=== PATIENT | female | born 1995 | race Caucasian/White ===

== ENCOUNTER 2023-11-16 20:14 | Observation (INO) | payer OTHER, SELFPAY ==
[2023-11-16] VITALS (7 sets, daily range): BP systolic 132–186; BP diastolic 55–124; BMI 22.4; BMI 22.3
[2023-11-16 17:25] LABS: % Basophils 0.3 % (0-2); % Eosinophils 1.7 % (0-6); % Immature Granulocytes 0.3 % (0-0.5); % Lymphocytes 18.6 % (20.5-51.1); % Monocytes 8.8 % (1.7-9.3); % Neutrophils 70.3 % (42.2-75.2); Absolute Eosinophils 0.2 10^3/uL (0-0.7); Absolute Lymphocytes 2.3 10^3/uL (1.2-3.4); Absolute Monocytes 1.1 10^3/uL (0.1-0.6); Absolute Neutrophils 8.8 10^3/uL (1.4-6.5); Hematocrit 37.6 % (37.0-47.0); Hemoglobin 13.2 g/dL (12.0-16.0); Mean Corp Hgb Conc. 35.1 g/dL (33.0-37.0); Mean Corpuscular Hgb 28.4 pg (27.0-31.0); Mean Corpuscular Volume 80.9 fL (81.0-99.0); Mean Platelet Volume 9.1 fL (7.4-10.4); Nucleated Red Blood Cells % 0 %; Platelet Count 283 10^3/uL (130-400); Red Blood Cell Count 4.65 10^6/uL (4.20-5.40); Red Cell Dist. Width 12.9 % (11.5-14.5); White Blood Cell Count 12.6 10^3/uL (4.8-10.8)
[2023-11-16 17:38] LABS: Lactic Acid 1.7 mmol/L (0.7-2.0)
[2023-11-16 17:39] LABS: ALT (SGPT) 37 U/L (0-35); AST (SGOT) 28 U/L (14-36); Albumin 4.3 g/dl (3.5-5.0); Alkaline Phosphatase 95 U/L (38-126); Blood Urea Nitrogen 27 mg/dl (7-17); Calcium 9.5 mg/dl (8.4-10.2); Carbon Dioxide 22 mmol/L (22-30); Chloride 106 mmol/L (98-107); Glucose 85 mg/dl (70-99); Potassium 4.4 mmol/L (3.5-5.1); Sodium 137 mmol/L (135-145); Total Bilirubin 0.4 mg/dl (0.2-1.3); Total Protein 6.9 g/dl (6.3-8.2); eGFR 52.88
[2023-11-16 17:54] LABS: HCG, Serum Qualitative Screen Negative
[2023-11-16] MEDS: NEURONTIN 900 MG PO ×2 (18:02→22:11)
--- NOTE | 2023-11-16 19:08 | W.PN.UPDATE ---
Update Note
Progress Note Update
ct head reviewed
diffuse atrophy and ventriculomegaly (question communicating hydrocephalus)
there is no ICP issue on CT and patient is reported to be at baseline minus reported leaning
ok to admit at
check MRI brain
full consult to follow tomorrow
--- NOTE | 2023-11-16 19:47 | HPS.HSE ---
Family Physician
-
Family Physician: Bao Taylor
Chief Complaint
-
leftward leaning
History of Present Illness
28-year-old female past medical history of migraines, MELAS syndrome, seizures, GERD, presenting with new onset of leaning to the left and feeling off balance for the past few weeks. She states that while she is sitting she will sometimes lean to
the left. She feels off balance when she stands so she has not been walking recently. She denies any new headache, blurry vision, vertigo, difficulty speaking or swallowing, nausea or vomiting, focal weakness, numbness or tingling. She gets
migraine possibly every month triggered by certain weather conditions, menstruation.
She states that she had a stroke when she was 11 years old. Her last seizure was several years ago.
She denies smoking, alcohol or marijuana.
She was sent in by Dr. Frederick her neurologist.
Medical History
Past Medical History
Past Medical History: Reports Other (migraines, MELAS syndrome, seizures, GERD)
Past Surgical History: Reports None
Social History
Tobacco: Non-smoker
Alcohol: None
Drug: None
Family History
Family History: Not pertinent
Allergies / Home Medications
Allergies reflects when Allergies were last updated in [facility].
Home Medications with original date entered in [facility]
Allergy/Medication List:
Allergies
Allergy/AdvReac Type Severity Reaction Status Date / Time
phenytoin [From Dilantin] Allergy Severe severe Verified 11/16/23 14:39
agitation
Penicillins Allergy Mild Hives Verified 11/16/23 14:39
Home Medications
dmthpnstgp-zyheqxbbhblvr-zslsjxei 50 mg-300 mg-40 mg capsule 1 cap PO Q6HPRN PRN mirgraines 11/16/23
fluoxetine 20 mg capsule (Prozac) 20 mg PO DAILY 11/16/23
gabapentin 300 mg capsule 900 mg PO TID 11/16/23
levetiracetam 750 mg tablet (Keppra) 750 mg PO BID 11/16/23
omeprazole 40 mg capsule,delayed release 40 mg PO HS 11/16/23
zolmitriptan 5 mg nasal spray 1 spray intranasal Q2HPRN PRN mirgraines 11/16/23
Review of Systems
-
History Source: Patient
A 12 point ROS was completed and negative except as noted: Yes
Constitutional: Reports No Symptoms
EENT: Reports No Symptoms
Respiratory: Reports No Symptoms
Cardiac: Reports No Symptoms
Abdomen/GI: Reports No Symptoms
: Reports No Symptoms
Musculoskeletal: Reports No Symptoms
Skin: Reports No Symptoms
Neurological: Reports See HPI
Endocrine: Reports No Symptoms
Hematologic/Lymphatic: Reports No Symptoms
Psych: Reports No Symptoms
Physical Exam
Vital Signs
Vital Signs
Temp Pulse Resp BP Pulse Ox
98.1 F 92 19 148/110 98
11/16/23 14:39 11/16/23 19:00 11/16/23 19:00 11/16/23 19:00 11/16/23 19:00
Physical Exam
General: Well Developed, Well Nourished and No Apparent Distress
HEENT: NormoCephalic, Moist mucous membranes and Atraumatic
Respiratory: Clear
Cardiac: S1/S2 and Regular Rhythm; No Murmur or Rub
GI: Soft, Non Tender, Non Distended and Normal Bowel Sounds; No Organomegaly
Rectal: Deferred by Provider
Musculoskeletal: No Clubbing, No Cyanosis and No Edema
Skin: No Rash
Neuro: Nonfocal/grossly intact, Tremors and Other (ataxia upper extremities )
Laboratory Results
-
11/16/23 17:16
11/16/23 17:16
Laboratory Results
Lactic Acid 1.7 mmol/L (0.7-2.0) 11/16/23 17:16
Total Bilirubin 0.4 mg/dl (0.2-1.3) 11/16/23 17:16
AST 28 U/L (14-36) 11/16/23 17:16
ALT 37 U/L (0-35) H 11/16/23 17:16
Alkaline Phosphatase 95 U/L (38-126) 11/16/23 17:16
Data Reviewed
-
Lab Data: Labs Reviewed by me
Old Records: Reviewed
Impression/Plan
-
IMPRESSION:
PLAN:
# Leftward leaning, disequilibrium possibly secondary to structural brain abnormality versus CVA vs manifestation of MELAS syndrome
-Has ataxia of upper extremities examination, but patient states this is not new
-CT shows diffuse atrophy, ventriculomegaly
-Check MRI brain with contrast
-Neurology, neurosurgery following
# Acute kidney injury
-IV fluids
MELAS syndrome
Seizure history
-Continue Keppra
History of migraines
-Continue gabapentin
GERD
-Continue omeprazole
Anxiety/depression
-Continue fluoxetine
Full code
DVT prophylaxis�SCDs
Regular diet
[2023-11-16] MEDS: NSS 1000 IV (21:19)
[2023-11-16] MEDS: PROTONIX 40 MG PO (22:10)
[2023-11-16] MEDS: KEPPRA 250 MG PO (22:10)
[2023-11-16] MEDS: KEPPRA 500 MG PO (22:10)
[2023-11-16] MEDS: TYLENOL 650 MG PO (22:36)
--- NOTE | 2023-11-16 23:58 | CON.NEURO4 ---
Consultation - Neurology 4
-
CONSULTING PHYSICIAN: Lyndon Barajas MD(Neurology)
REFERRING PHYSICIAN: Hospitalist
DICTATED BY: Lyndon Barajas MD
DATE/TIME OF REQUEST: 11/16/2023
DATE/TIME OF CONSULTATION: 11/16/2023 1900
Reason for Consultation: Ataxia
History of Present Illness:
This is a 28 year old right handed female who has presented to the hospital with chief complaint of ataxia. 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 She was seen at
[facility]
She had two episodes of status epilepticus and seizures were controlled with Keppra. Currently seizure free on Keppra 750 BID since 2006. She also gives ah/o headaches controlled on Gabapentin.
She walked with a walker.
Since Beginning of October 2023 she had difficulty maintaining her balance, walking with her walker
She was seen by her primary care and Gabapentin dose was decreased from 3600 mg to 2700mg (divided dosing). She was seen by her Neurologist who referred to [facility].
Past Medical History: MELAS
Surgical History:
Family History:
Social History: Disabled lives at home with her mother
Allergies: PCN, Dilantin
Home Medications: Addendum
Review of Symptoms:
Patient denies any fever, headache, chest pain, shortness of breath, GI or symptoms.
�Per the HPI.�All systems are reviewed negative except above.
�- Remove any of these problems that patient may have complained about in the HPI.
�- If patient is unresponsive, intubated or demented, say 'Per the HPI. I am unable to obtain a complete review of systems�because of patient's inability to provide history.'
Vital Signs:
The patient has a
Physical Exam:
The patient is afebrile, heart sounds S1 and S2 are (regular / irregular), and chest is clear to auscultation bilaterally.
Neurologic Examination:
The patient is awake, alert and oriented x person and place. She is able to follow commands and answer questions appropriately. Speech is fluent but limited with dysarthria. On cranial nerve assessment, pupils are 3 mm bilateral, round and reactive
to light and accommodation. Visual samuel are full. Extraocular movements are intact. Facial sensations are intact and bilaterally symmetrical, there is facial asymmetry. Hearing is intact bilaterally to normal conversation volume. Tongue palate
and uvula are midline. Sternocleidomastoid strengths are full bilaterally. Motor strengths are 4/5 bilateral upper and lower extremities.
There is no drift or involuntary movement noted. Deep tendon reflexes are + bilateral upper and lower extremities and Babinski is present bilaterally. Sensations of pain, touch, temperature and vibration are intact and bilaterally symmetrical..
Coordination is dysmetric on finger to nose bilaterally. Rombergs positive. Gait is assisted
Lab Results: Addendum
Neuro Imaging: Significant progression of parenchymal atrophy compared to the head CT from 07/07/2006. Small region of suspected age-indeterminate ischemia in the paramedian right occipital lobe. Ventriculomegaly suggestive of communicating
hydrocephalus
Impression:
Ms. STEVEN GOODMAN is a 28 year old F who has presented to the hospital with (symptoms/chief complaint) of gait ataxia
Differentials for the patient's presentation include:
1. Hydrocephalus
2. Gabapentin toxicity
Recommendations:
1. Neurosurgical eval
2. Lumbar puncture with large volume CSF removal to assess recovery of functional gait
Discussed patient care with: Hospitalist and Mother
Vital Signs and Labs
-
Vital Signs and Labs:
Vital Signs
Temp Pulse Resp BP Pulse Ox
36.8 C 90 20 132/55 97
11/16/23 23:56 11/16/23 23:56 11/16/23 23:56 11/16/23 23:56 11/16/23 23:56
Lab Results
11/16/23 17:16
11/16/23 17:16
Sodium 137 mmol/L (135-145) 11/16/23 17:16
Potassium 4.4 mmol/L (3.5-5.1) 11/16/23 17:16
BUN 27 mg/dl (7-17) H 11/16/23 17:16
Glucose 85 mg/dl (70-99) 11/16/23 17:16
Calcium 9.5 mg/dl (8.4-10.2) 11/16/23 17:16
Medications
-
Active Medications
Generic Name Dose Route Start Last Admin
Trade Name Freq PRN Reason Stop Dose Admin
Acetaminophen 650 mg 11/16/23 22:10 11/16/23 22:36
Acetaminophen 325 Mg Tablet PO 12/14/23 22:09 650 mg
Q6HPRN PRN Administration
mild pain/ fever>100.5F
Acetaminophen/Butalbital/Caffeine 1 tab 11/16/23 21:44
Butalbit/Acetaminophen/Caffeine PO 12/14/23 21:43
Q6HPRN PRN
mirgraines
Fluoxetine HCl 20 mg 11/17/23 08:00
Fluoxetine 20 Mg Capsule PO 12/15/23 07:59
DAILY HERMINIA
Gabapentin 900 mg 11/16/23 22:00 11/16/23 22:11
Gabapentin 300 Mg Capsule PO 12/14/23 21:59 900 mg
TID HERMINIA Administration
Sodium Chloride 1,000 mls @ 60 mls/hr 11/16/23 20:55 11/16/23 21:19
Nss IV 1,000 mls
.[id number] HERMINIA Administration
Levetiracetam 250 mg 11/16/23 21:00 11/16/23 22:10
Levetiracetam 250 Mg Regular Release Tablet PO 12/14/23 20:59 250 mg
BID HERMINIA Administration
Levetiracetam 500 mg 11/16/23 21:00 11/16/23 22:10
Levetiracetam 500 Mg Regular Release Tablet PO 12/14/23 20:59 500 mg
BID HERMINIA Administration
Pantoprazole Sodium 40 mg 11/16/23 22:00 11/16/23 22:10
Pantoprazole 40 Mg Delayed Release Tablet PO 12/14/23 21:59 40 mg
HS HERMINIA Administration
Home Medications
�Medication �Instructions �Recorded
mtljmmvawt-zjepqofhmrwsi-zdxdbzzd 1 cap PO Q6HPRN PRN mirgraines 11/16/23
50 mg-300 mg-40 mg capsule
fluoxetine 20 mg capsule (Prozac) 20 mg PO DAILY 11/16/23
gabapentin 300 mg capsule 900 mg PO TID 11/16/23
levetiracetam 750 mg tablet 750 mg PO BID 11/16/23
(Keppra)
omeprazole 40 mg capsule,delayed 40 mg PO HS 11/16/23
release
zolmitriptan 5 mg nasal spray 1 spray intranasal Q2HPRN PRN 11/16/23
mirgraines
[2023-11-17 03:42] VITALS: BP 140/96
[2023-11-17 07:10] VITALS: BP 159/112
[2023-11-17 07:24] LABS: % Basophils 0.3 % (0-2); % Eosinophils 2.3 % (0-6); % Immature Granulocytes 0.3 % (0-0.5); % Lymphocytes 21.6 % (20.5-51.1); % Monocytes 8.3 % (1.7-9.3); % Neutrophils 67.2 % (42.2-75.2); Absolute Eosinophils 0.3 10^3/uL (0-0.7); Absolute Lymphocytes 2.5 10^3/uL (1.2-3.4); Absolute Neutrophils 7.7 10^3/uL (1.4-6.5); Hematocrit 37.5 % (37.0-47.0); Hemoglobin 12.8 g/dL (12.0-16.0); Mean Corp Hgb Conc. 34.1 g/dL (33.0-37.0); Mean Corpuscular Hgb 28.1 pg (27.0-31.0); Mean Corpuscular Volume 82.4 fL (81.0-99.0); Mean Platelet Volume 9.3 fL (7.4-10.4); Nucleated Red Blood Cells % 0 %; Platelet Count 266 10^3/uL (130-400); Red Blood Cell Count 4.55 10^6/uL (4.20-5.40); Red Cell Dist. Width 12.9 % (11.5-14.5); White Blood Cell Count 11.5 10^3/uL (4.8-10.8)
[2023-11-17 07:54] LABS: ALT (SGPT) 34 U/L (0-35); AST (SGOT) 32 U/L (14-36); Albumin 3.9 g/dl (3.5-5.0); Alkaline Phosphatase 82 U/L (38-126); Blood Urea Nitrogen 31 mg/dl (7-17); Carbon Dioxide 21 mmol/L (22-30); Chloride 109 mmol/L (98-107); Estimated Creatinine Clearance 46 ml/min; Glucose 94 mg/dl (70-99); Potassium 4.6 mmol/L (3.5-5.1); Sodium 138 mmol/L (135-145); Total Bilirubin 0.5 mg/dl (0.2-1.3); Total Protein 6.3 g/dl (6.3-8.2); eGFR 52.88
[2023-11-17] MEDS: KEPPRA 500 MG PO (08:22)
[2023-11-17] MEDS: PROZAC 20 MG PO (08:22)
[2023-11-17] MEDS: NEURONTIN 900 MG PO ×2 (08:22→14:57)
[2023-11-17] MEDS: KEPPRA 250 MG PO (08:22)
--- NOTE | 2023-11-17 10:37 | EEG.RPT ---
Electroencephalogram Report
Recording
Date of EE11/17/23
Length of EEG recordin minutes
Done with Video Recording: No
Patient Status: Inpatient
Recording Conditions: Awake and Drowsy
Hyperventilation Performed: No
Photic Stimulation Performed: Yes
Report
LESS THAN 1 HOUR EEG INTERPRETATION:
Unremarkable EEG for age.
CLINICAL CORRELATION:
A normal EEG does not exclude epilepsy. If further suspicion for epilepsy exists repeated study or longer term study can be considered.
Clinical correlation is advised.
METHODS:
A 21 channel digitized electroencephalogram (EEG) was performed using the 10/20 international system of electrode placement and one-lead of ECG recorded. Study lasted 26 minutes.
ELECTROENCEPHALOGRAPHER IMPRESSION(S):
Quality of study
Good
Background
Background consists of predominantly alpha and theta maximum frequencies of normal medium amplitude
With eyes closed a posterior dominant alpha rhythm of 8 hz is seen which attenuates with eye opening
No background asymmetry seen
Sleep
Drowsiness present
Photic Stimulation
No activation
Hyperventilation
Not performed
ECG
Normal sinus rhythm
Abnormalities
No significant abnormalities seen, no seizures or interictal epileptiform discharges seen
[2023-11-17 11:05] VITALS: BP 123/88
--- NOTE | 2023-11-17 11:28 | CON.NS ---
Chief Complaint
-
Question hydrocephalus
History of Present Illness
This is a 28-year-old female with a history of MELAS syndrome. At baseline she uses walker. Mom noticed for the past 3 weeks on leaning when she walks or stands. Or while sitting on a chair. Her mother does note waxing waning of her symptoms
over time. CAT scan of the head was obtained which showed diffuse ventriculomegaly and worsening atrophy. There is a question of if there is communicating hydrocephalus. Neurosurgery has been consulted as per above.
Review of Systems
-
Patient was sleeping during interview all history is obtained by her mother
Medication and Allergies
Home Medications
Home Medications
�Medication �Instructions �Recorded
wmtvdbsevp-cmcalkitkuyww-ervoznza 1 cap PO Q6HPRN PRN mirgraines 11/16/23
50 mg-300 mg-40 mg capsule
fluoxetine 20 mg capsule (Prozac) 20 mg PO DAILY Depression 11/16/23
gabapentin 300 mg capsule 900 mg PO TID Neurological 11/16/23
Condition
levetiracetam 750 mg tablet 750 mg PO BID Seizures 11/16/23
(Keppra)
omeprazole 40 mg capsule,delayed 40 mg PO HS Gastrointestinal Issue 11/16/23
release
zolmitriptan 5 mg nasal spray 1 spray intranasal Q2HPRN PRN 11/16/23
mirgraines
Allergies
Allergies
Allergy/AdvReac Type Severity Reaction Status Date / Time
phenytoin [From Dilantin] Allergy Severe severe Verified 11/16/23 14:39
agitation
Penicillins Allergy Mild Hives Verified 11/16/23 14:39
Physical Exam
-
Exam:
Patient sleeping during exam no physical exam was taken
CT head shows diffuse ventriculomegaly, diffuse cerebral atrophy.
MRI does not show any obstructing lesion
Assessment / Plan
-
Cerebral atrophy, ventriculomegaly, question hydrocephalus
1. This is a complex medical picture. Is unclear whether her symptoms of leaning are due to her underlying mitochondrial disease, cerebral atrophy secondary to her mitochondrial disease, or the possibility of a communicating hydrocephalus
2. At this time it is reasonable to consider a high-volume lumbar puncture to see if there is any clinical improvement in her symptoms. If a high-volume LP is obtained and there is improvement then consideration can be made for
ventriculoperitoneal shunt
3. Given the duration of symptoms I do not believe it is emergent. And this can all be done as an outpatient
4. She can follow-up as an outpatient when she discharges
--- NOTE | 2023-11-17 11:35 | W.PN.HOSP.TC ---
Documented by User: Min Martinez MD, Resident 11/17/23 13:28
Today's Communication/Plan
-
Patient is medically stable at the present time and has been evaluated by neurosurgery. Upon evaluation from neurosurgery they were unsure whether her symptoms of bleeding were due to underlying mitochondrial disease, cerebral atrophy secondary to
mitochondrial disease, or possibility of a communicating hydrocephalus. There was consideration of conducting a high-volume lumbar puncture to see if any clinical improvement occurred and her symptoms and if improvement occurred there may be
consideration of ventriculoperitoneal shunt. They recommended that this procedure be done in the outpatient setting as it is not emergent by their evaluation.
Physical therapy consult along with case management has been asked to evaluate if the patient can benefit from assistance at home. After evaluation we we will move forward with discharge planning.
Assessment / Plan
Assessment / Plan
- Leftward leaning, disequilibrium possibly secondary to structural brain abnormality versus CVA vs manifestation of MELAS syndrome:
Has ataxia of upper extremities on examination�these are not new findings.
CT of the head shows diffuse ventriculomegaly with diffuse cerebral atrophy. Significant progression of atrophy when compared to head CT from 07/07/2006
MRI shows chronic senescent changes with diffuse parenchymal atrophy. Suspicion of superimposed communicating normal pressure hydrocephalus
EEG conducted was unremarkable.
Neurology consult was suspicious of normal pressure communicating hydrocephalus. They advised neurosurgery consult be conducted
Neurosurgery consult was unclear whether her symptoms of leaning with due to underlying mitochondrial disease, cerebral atrophy secondary to her mitochondrial disease, or the possibility of a communicating hydrocephalus. There was consideration of
possibly conducting a high-volume lumbar puncture to see if any clinical improvement in her symptoms occurred. If high-volume LP is obtained and improvement is seen then consideration could be made for ventriculoperitoneal shunt. Symptoms were not
emergent and they advised conducting this procedure in the outpatient setting after discharge.
- MELAS syndrome:
Seizure history�continue Keppra
- Anxiety/Depression:
Continue fluoxetine
Full code
DVT prophylaxis �sequential compression devices
Regular diet
Anticipated Discharge: Within 24 hours
Subjective/Interval History
-
Date of Service: November 17, 2023
Met with patient at the bedside. She is in a calm and pleasant mood and happy to engage in discussion. She is currently leaning to the left and struggles to move without losing balance. She offers no complaints outside of her difficulty finding
balance. She has had normal bowel movements and urination.
Objective Data
-
Labs:
Laboratory Results
11/17/23
06:54
WBC 11.5 H
Hgb 12.8
Hct 37.5
Plt Count 266
Sodium 138
Potassium 4.6
Chloride 109 H
Carbon Dioxide 21 L
BUN 31 H
Creatinine 1.4 H
Glucose 94
Calcium 9.0
Total Bilirubin 0.5
AST 32
ALT 34
Alkaline Phosphatase 82
Vital Signs:
Vital Signs
Temp Pulse Resp BP Pulse Ox
99.4 F 91 18 123/88 97
11/17/23 11:05 11/17/23 11:05 11/17/23 11:05 11/17/23 11:05 11/17/23 11:05
I&O
11/16/23 11/17/23 11/18/23
06:59 06:59 06:59
Intake Total 840 / 840
Output Total 200 / 200
Balance 640 / 640
Review of Systems
-
History Source: Patient
EENT: Reports No Symptoms Reported
Respiratory: Reports No Symptoms
Cardiac: Reports No Symptoms
Abdomen/GI: Reports No Symptoms
Breast: Reports No Symptoms
Genitourinary: Reports No Symptoms
Musculoskeletal: Reports No Symptoms
Skin: Reports No Symptoms
Neuro: Reports Ataxia, Tremors and Other (Balance difficulty - Leaning towards left side)
Endocrine: Reports No Symptoms
Hematologic / Lymphatic: Reports No Symptoms
Allergy / Immunology: Reports No Symptoms
Physical Exam
-
General: Well Developed, Well Nourished and Comfortable
HEENT: Normocephalic, Atraumatic and Moist Mucous Membranes
Respiratory: Clear to Auscultation
Cardiac: Regular Rhythm and S1/S2
Breast: Deferred by me
GI: Soft, Nontender, Nondistended and Normal Bowel Sounds
Rectal: Deferred by Provider
Genito-urinary: Deferred by me
Musculoskeletal: No Clubbing, No Cyanosis and No Edema
Skin: Warm and Dry
Neuro: Other (Difficulty with proprioception and leaning to the left)
Psych: Calm

Documented by User: Bruce Caba MD 11/17/23 14:40
Assessment / Plan
Assessment / Plan
Anticipated Discharge: Today
--- NOTE | 2023-11-17 11:57 | W.DS.TRANS ---
DC Summary - Access Consultant
-
Discharge Instructions:
Discharge Diagnosis/Procedures MELAS Syndrome
Diet No restrictions
Activity With assistance,With Walker
Driving Restrictions As prior to admission
Bathing Restrictions None
Instructions:
Stand-Alone Forms:
Changes to Home Medications: No
Discharge Medications:
DC Medications w/original date entered in [employer]
pagycmgzza-oktjtytfzbqub-ihmehhcw 50 mg-300 mg-40 mg capsule 1 cap PO Q6HPRN PRN mirgraines 11/16/23
fluoxetine 20 mg capsule (Prozac) 20 mg PO DAILY Depression 11/16/23
gabapentin 300 mg capsule 900 mg PO TID Neurological Condition 11/16/23
levetiracetam 750 mg tablet (Keppra) 750 mg PO BID Seizures 11/16/23
omeprazole 40 mg capsule,delayed release 40 mg PO HS Gastrointestinal Issue 11/16/23
zolmitriptan 5 mg nasal spray 1 spray intranasal Q2HPRN PRN mirgraines 11/16/23
Home Medication Changes
Pending Results: No
--- NOTE | 2023-11-17 11:58 | W.DCSUMMARY ---
Documented by User: Min Martinez MD, Resident 11/17/23 14:38
Discharge Summary
Discharge Data
Date of Admission: 11/16/23
Date of Discharge: 11/17/23
-
Pending Results: No
Hospital Course
Patient is a 28-year-old female with a past history of migraines, MELAS syndrome, seizures, GERD who presented to [place] emergency department with new onset leaning to the left side and feeling off balance for the past few weeks. She stated
that it started in the beginning of October and that while she is sitting she leans to the left. She felt off balance when she was standing so she had not been walking much up until her presentation to the emergency department. She denied any new
headache, blurry vision, vertigo, difficulty speaking or swallowing, nausea or vomiting, focal weakness, numbness or tingling. 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 Her last
seizure was in 2006 according to the patient's mother. The patient was admitted to [facility] for assessment of a neurological issues.
The patient underwent a CT and MRI with contrast during her admission. She was also followed by neurology and neurosurgery. CT of the head conducted on 11/15 showed significant progression of advanced parenchymal atrophy when compared to the head
CT from 07/07/2006. CT also showed a small region of suspected age-indeterminate ischemia in the paramedian right occipital lobe and radiologist to read the CT recommended a MRI to further investigate. MRI conducted on 11/16 showed chronic senescent
changes with diffuse parenchymal atrophy. Radiology also could not rule out component of superimposed communicating normal pressure hydrocephalus. EEG conducted on 11/16 was unremarkable. Neurology saw the patient and was under the impression that
the cause may be due to hydrocephalus and recommended further follow-up with neurosurgery. Neurosurgery came and assessed the patient and after investigating recent and prior imaging of the brain they were unclear whether her symptoms of leftward
leaning were due to her underlying mitochondrial disease, cerebral atrophy secondary to her mitochondrial disease, or the possibility of communicating hydrocephalus. Neurosurgery were considering possibility of high-volume lumbar puncture to see if
there was any clinical improvement of her symptoms and if that LP resulted in improvement then consideration could be made for ventriculoperitoneal shunt in the future. Neurosurgery did not believe that the duration of symptoms were emergent and
recommended that these procedures be done in the outpatient setting. They recommended that the patient follow-up with Dr. Reed in his group in the outpatient setting upon discharge. The patient and her family believe the patient is ready for
discharge as her condition has remained stable and will follow-up with neurosurgery in the outpatient setting. The patient has been struggling with ambulation and though she uses her walker, as of late it has been more difficult for her to safely
navigate her home. A PT/OT consult evaluated the patient and assessed that the patient would benefit from OT services at home. applications manager was notified and made arrangements for the family to get assistance in the outpatient setting.
This patient has reached maximal benefit from this hospital stay and is appropriate for discharge at the present time. The patient has been recommended to follow-up with neurosurgery in the outpatient setting and to utilize the services of
occupational therapy in the outpatient setting. Patient is appropriate for follow-up by her primary care provider within 1 week after discharge. She should continue her current medication regimen.
Discharge Plan
-
Patient Disposition: Home (Routine Discharge)
Discharge Diagnosis/Procedures: MELAS Syndrome
Diet: No restrictions
Activity: With assistance and With Walker
Driving Restrictions: As prior to admission
Bathing Restrictions: None
Referrals:
Beto Reed DO [Active] -
Bao Taylor MD [Family Provider] - in one week
Prescriptions:
Continued
omeprazole 40 mg Capsule,Delayed Release(Dr/Ec)
40 mg PO HS
gabapentin 300 mg Capsule
900 mg PO TID
levetiracetam [Keppra] 750 mg Tablet
750 mg PO BID
fluoxetine [Prozac] 20 mg Capsule
20 mg PO DAILY
zolmitriptan 5 mg [place],Non-Aerosol
1 spray INTRANASAL Q2HPRN PRN (Reason: mirgraines)
yigtdnywme-qbikhhxduxzuo-memp 50-300-40 mg capsule
1 cap PO Q6HPRN PRN (Reason: mirgraines)
Discharge Orders:
Discharge Patient (As Directed); Ordered 11/17/23
Ordered By: Min Martinez
Discharge Date and Time
Print Language: CROATIAN

Documented by User: Bruce Caba MD 11/17/23 14:42
Discharge Summary
Discharge Data
Date of Admission: 11/16/23
Date of Discharge: 11/17/23
Hospital Course
Patient is a 28-year-old female with a past history of migraines, MELAS syndrome, seizures, GERD who presented to [place] emergency department with new onset leaning to the left side and feeling off balance for the past few weeks. She stated
that it started in the beginning of October and that while she is sitting she leans to the left. She felt off balance when she was standing so she had not been walking much up until her presentation to the emergency department. She denied any new
headache, blurry vision, vertigo, difficulty speaking or swallowing, nausea or vomiting, focal weakness, numbness or tingling. 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 Her last
seizure was in 2006 according to the patient's mother. The patient was admitted to [facility] for assessment of a neurological issues.
The patient underwent a CT and MRI with contrast during her admission. She was also followed by neurology and neurosurgery. CT of the head conducted on 11/15 showed significant progression of advanced parenchymal atrophy when compared to the head
CT from 07/07/2006. CT also showed a small region of suspected age-indeterminate ischemia in the paramedian right occipital lobe and radiologist to read the CT recommended a MRI to further investigate. MRI conducted on 11/16 showed chronic senescent
changes with diffuse parenchymal atrophy. Radiology also could not rule out component of superimposed communicating normal pressure hydrocephalus. EEG conducted on 11/16 was unremarkable. Neurology saw the patient and was under the impression that
the cause may be due to hydrocephalus and recommended further follow-up with neurosurgery. Neurosurgery came and assessed the patient and after investigating recent and prior imaging of the brain they were unclear whether her symptoms of leftward
leaning were due to her underlying mitochondrial disease, cerebral atrophy secondary to her mitochondrial disease, or the possibility of communicating hydrocephalus. Neurosurgery were considering possibility of high-volume lumbar puncture to see if
there was any clinical improvement of her symptoms and if that LP resulted in improvement then consideration could be made for ventriculoperitoneal shunt in the future. Neurosurgery did not believe that the duration of symptoms were emergent and
recommended that these procedures be done in the outpatient setting. They recommended that the patient follow-up with Dr. Reed in his group in the outpatient setting upon discharge. The patient has been struggling with ambulation and though
she uses her walker, as of late it has been more difficult for her to safely navigate her home. A PT/OT consult evaluated the patient and assessed that the patient would benefit from OT services at home. applications manager was notified and made
arrangements for the family to get assistance in the outpatient setting.
This patient has reached maximal benefit from this hospital stay and is appropriate for discharge at the present time. The patient has been recommended to follow-up with neurosurgery in the outpatient setting and to utilize the services of
occupational therapy in the outpatient setting. Patient is appropriate for follow-up by her primary care provider within 1 week after discharge. She should continue her current medication regimen.
Discharge Plan
-
Patient Disposition: Home (Routine Discharge)
Discharge Diagnosis/Procedures: MELAS Syndrome
Diet: No restrictions
Activity: With assistance and With Walker
Driving Restrictions: As prior to admission
Bathing Restrictions: None
Referrals:
Beto Reed DO [Active] -
Bao Taylor MD [Family Provider] - in one week
Prescriptions:
Continued
omeprazole 40 mg Capsule,Delayed Release(Dr/Ec)
40 mg PO HS
gabapentin 300 mg Capsule
900 mg PO TID
levetiracetam [Keppra] 750 mg Tablet
750 mg PO BID
fluoxetine [Prozac] 20 mg Capsule
20 mg PO DAILY
zolmitriptan 5 mg [place],Non-Aerosol
1 spray INTRANASAL Q2HPRN PRN (Reason: mirgraines)
idfyowkjpo-aphhhgiyznrok-ekfn 50-300-40 mg capsule
1 cap PO Q6HPRN PRN (Reason: mirgraines)
Discharge Orders:
Discharge Patient (As Directed); Ordered 11/17/23
Ordered By: Min Martinez
Discharge Date and Time
Print Language: CROATIAN
--- NOTE | 2023-11-17 14:36 | W.PN.UPDATE ---
Update Note
Progress Note Update
I saw and evaluated the patient. I reviewed the resident�s note and agree with findings and plan as documented in the resident�s note.
Patient with a subacute onset of left leaning gait and imbalance and needing to use a walker. Patient has MELAS.
Imaging and testing so far shows cerebral atrophy ventriculomegaly and questionable communicating hydrocephalus. Appreciate neurology and neurosurgery input. The plan is to do a high-volume lumbar puncture to see if it helps her clinical symptoms
; can be pursued as an outpatient.
Discussed with mother at bedside who is feeling that with the current change in her ambulatory function they want to explore if she can get any help with therapies at home. Consult PT and director of social media marketing.
After patient seen by PT and director of social media marketing will be discharged home today.
DW NSG on floor today.
More than 30 minutes spent in discharge including
Final examination of the patient
Summarizing hospital stay
Instructions for continuing care to all relevant caregivers
Preparation of discharge records, prescriptions, and referral forms
Total time spent (in minutes): 35
[2023-11-17] MEDS: NSS 1000 IV (14:57)
[2023-11-17 15:05] VITALS: BP 149/92
[2023-11-17 16:13] VITALS: BP 147/106; PULSE 112; O2SAT 99
--- NOTE | 2023-11-17 16:27 | CM ---
Addendum entered by Alexandro Cerda 11/17/23 16:34:
Mother declined therapy recommendation for acute rehab.
Original Note:
Initial assessment completed with mother. Patient lives with mother in a 2 story home with patient's B/B on 2nd and 1/2 bath on w 2 steps to enter with B/L rails. Patient has a rollator, electric scooter, wheelchair, handicap shower and grab
bars. No in-home services. Patient is capable of dressing herself, oral hygiene, hair grooming, requires assistance in the shower. She goes to the gym 2x/week for exercise. No history of psychiatric hospitalizations. Pharmacy is [facility] in [place]
and PCP is Dr. Bao Taylor. Anticipate home with [facility], PT/OT services. Referral forwarded.
--- NOTE | 2023-11-17 16:35 | CM ---
Patient has been medically cleared for discharge to home with [facility], PT/OT services. Mother has declined therapy rec for acute rehab. Mother will transport home.
--- NOTE | 2023-11-21 11:09 | ED.CVA ---
History of Present Illness
General
Chief Complaint: CVA/TIA Symptoms
Source: patient
Time Seen by Provider: 11/16/23 16:31
Onset of Stroke Symptoms
Onset of symptoms known: No
Time pt last seen normal is known: No
History of Present Illness
History of Present Illness:
Please note the date of discharge should read 11/16/2023. Patient is a 28-year-old female that presents with mother who states the patient has been leaning to the left recently. 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
She is followed by neurology as well as specialty at [facility]. Patient has been in her normal cognitive baseline but has been leaning to the left while sitting and ambulating. This been going on for the past 3 to 4 days. No associated pain. No
fever. No other complaints at this time
Phy Exam
Physical Exam
Physical Exam:
General: Well-appearing female no acute respiratory distress
HEENT: Normocephalic atraumatic
Heart: Regular rate and rhythm no murmurs
Lungs: Clear no wheeze or rales
Abdomen is soft nontender nondistended
Neurologic exam: Alert oriented no obvious unilateral deficit. On exam
Course
Orders/Labs/Results
Orders:
Orders
11/16/23 14:[address] [CT Head W/o Iv Contrast] Urgent
Comment:
Reason For Exam: hx of CVA, leaning on left, gait dysfunction
11/16/23 Dinner
Regular
At Your Request: Limited Participation
11/16/23 16:52
Gabapentin [Neurontin] 900 mg PO NOW STA
11/16/23 17:16
Complete Blood Count/With Diff Urgent
Comprehensive Metabolic Panel Urgent
HCG, Serum Qualitative Screen Urgent
Comment: ADD ON
Lactic Acid Urgent
11/16/23 17:24
Add On- LAB Urgent
Comments:: in lab
Tests Added?: Serum HCG qualitative
11/16/23 19:42
Admit/Transfer Patient As Directed
Co-Sign Provider:
Level of Care: Observation services
Assign to:: Telemetry
Physician / Group: teri
Diagnosis: lefrward leaning
Reason for Telemetry: CVA/TIA
Date to Stop Telemetry: 11/19/23
Time to Stop Telemetry: 11:00
11/16/23 19:43
Code Status As Directed
Resuscitation Status: Full Code
11/16/23 20:55
0.9% Sodium Chloride 1000 ml [Nss] 1,000 ml IV 60 mls/hr
levetiracetam [Keppra] 750 mg PO BID
zolmitriptan 1 spray NASAL Q2HPRN PRN
11/16/23 20:55
NEUROLOGY CONSULT Routine
Consulting Provider: Lyndon Barajas
Was physician already notified: Yes
Activity As Directed
Activity Level: As Tolerated
Pneumatic Compression Sleeves As Directed
Type: Knee high
Vital Signs As Directed
Frequency: Per unit guidelines
DX Deep Vein Thrombosis Video Routine
11/16/23 21:44
Butalb/Acetaminophen/Caffeine [Fioricet] 1 tab PO Q6HPRN PRN
11/16/23 22:00
Gabapentin [Neurontin] 900 mg PO TID
Pantoprazole [Protonix] 40 mg PO HS
11/17/23 06:54
Complete Blood Count/With Diff IN AM
Comprehensive Metabolic Panel IN AM
11/17/23 08:00
Fluoxetine HCl [Prozac] 20 mg PO DAILY
11/19/23 11:00
DC Protocol for Telemetry ONCE
Abnormal Lab Results
11/16/23
17:16
WBC 12.6 H 10^3/uL
(4.8-10.8)
MCV 80.9 L fL
(81.0-99.0)
Absolute Neuts (auto) 8.8 H 10^3/uL
(1.4-6.5)
Absolute Monos (auto) 1.1 H 10^3/uL
(0.1-0.6)
Lymphocytes % 18.6 L %
(20.5-51.1)
BUN 27 H mg/dl
(7-17)
Creatinine 1.4 H mg/dL
(0.6-1.0)
ALT 37 H U/L
(0-35)
11/16/23 17:16
11/16/23 17:16
Vital Signs
Initial and Last Documented VS:
Initial Vital Signs
Temp Pulse Resp BP Pulse Ox
98.1 F 93 18 145/83 98
11/16/23 14:39 11/16/23 14:39 11/16/23 14:39 11/16/23 14:39 11/16/23 14:39
Last Documented Vital Signs
Temp Pulse Resp BP Pulse Ox
98.2 F 94 18 149/92 99
11/17/23 15:05 11/17/23 15:05 11/17/23 15:05 11/17/23 15:05 11/17/23 15:05
MDM/Problems Addressed
Differential Diagnosis Includes:
Leaning to the left. She has mitochondrial disorder that makes her prone to neurologic events. Mother current for about a stroke. She spoke with her neurology, Dr. Chou who sent her in for further evaluation CT of the head was performed which
was negative. I discussed findings with our neurology team, [facility]. I spoke with the metabolic team at [facility], the ED director as well as the general medicine and stroke team. They agree that the
patient has aged out of the care of [facility]. They recommended adult stroke workup. Let our neurology team known patient was admitted to hospital for new onset left-sided needing.
*Critical Care Note
Total Time (30-74mins, 75-104mins- exclusive of procedures): Not Applicable
ED Attending Note
-
Portions of this chart may have been created with voice recognition software.� Occasional wrong word or��sound alike� substitutions may have occurred due to the inherent limitations of voice recognition software.
Discharge Plan
Departure
Patient Disposition: Admit
Admit to: Telemetry
Presentation/result/management discussed w/ accepting MD/DO: Hospitalist
Discharge Problem:
leftward leaning
Interventions
Interventions:
*Risk Screen - Suicide Last Done: 11/16/23 14:39
*General Assessment Last Done: 11/16/23 14:39
*Neglect/Abuse Screening Last Done: 11/16/23 14:39
ED- Fall Risk Assessment Last Done: 11/16/23 21:00
*ED COVID-19 Vaccine History Last Done: 11/16/23 18:00
*Nursing Disposition Last Done: 11/16/23 21:00
ED- Pulmonary Assessment Last Done: 11/16/23 19:00
ED- Neurological Assessment Last Done: 11/16/23 19:18
ED- Cardiac Assessment Last Done: 11/16/23 19:00
ED Swallowing Screen Last Done: 11/16/23 18:00
Discharge Date and Time
Discharge Date/Time: 11/16/23 21:00
== END 2023-11-17 17:06 | disposition home health service (06) ==
LOC: 2 NORTH 20:14
PROVIDERS: Physician Assistant; ADMITTING PHYSICIAN Hospitalist; ATTENDING PHYSICIAN Internal Medicine; CONSULT PHYSICIAN Psychiatry & Neurology Neurology; EMERGENCY PHYSICIAN Emergency Medicine; FAMILY PHYSICIAN Family Medicine; OTHER PHYSICIAN Neurological Surgery
DX: E88.41 MELAS syndrome (principal); R42 Dizziness and giddiness; G93.89 Other specified disorders of brain; R26.2 Difficulty in walking, not elsewhere classified; G43.909 Migraine, unspecified, not intractable, without status migrainosus; G40.919 Epilepsy, unspecified, intractable, without status epilepticus; K21.9 Gastro-esophageal reflux disease without esophagitis; N17.9 Acute kidney failure, unspecified; F32.A Depression, unspecified; F41.9 Anxiety disorder, unspecified; Z88.0 Allergy status to penicillin; Z88.8 Allergy status to other drugs, medicaments and biological substances; Z86.73 Personal history of transient ischemic attack (TIA), and cerebral infarction without residual deficits
CPT/HCPCS: 70450; 70553; 80053; 83605; 84703; 85025; 95816; 97163; 97166; 97530; A9575; G0378

== ENCOUNTER 2023-12-20 19:05 | Outpatient (RCR) | payer OTHER, SELFPAY | END 2023-12-20 23:59 | disposition home or self-care (01) | LOC: RPT 19:05 | PROVIDERS: ATTENDING PHYSICIAN Internal Medicine Endocrinology, Diabetes & Metabolism; FAMILY PHYSICIAN Family Medicine | DX: E88.41 MELAS syndrome (principal); Z73.6 Limitation of activities due to disability | CPT/HCPCS: 97110; 97112; 97116; 97140; 97163; 97530 ==

== ENCOUNTER 2024-01-22 17:07 | Outpatient (RCR) | payer OTHER, SELFPAY | END 2024-01-22 23:59 | disposition home or self-care (01) | LOC: RPT 17:07 | PROVIDERS: ATTENDING PHYSICIAN Internal Medicine Endocrinology, Diabetes & Metabolism; FAMILY PHYSICIAN Family Medicine | DX: E88.41 MELAS syndrome (principal); Z86.73 Personal history of transient ischemic attack (TIA), and cerebral infarction without residual deficits; Z73.6 Limitation of activities due to disability | CPT/HCPCS: 97112; 97116; 97530 ==

== ENCOUNTER 2024-02-12 17:06 | Outpatient (RCR) | payer OTHER, SELFPAY | END 2024-02-12 23:59 | disposition home or self-care (01) | LOC: RPT 17:06 | PROVIDERS: ATTENDING PHYSICIAN Internal Medicine Endocrinology, Diabetes & Metabolism; FAMILY PHYSICIAN Family Medicine | DX: E88.41 MELAS syndrome (principal); Z86.73 Personal history of transient ischemic attack (TIA), and cerebral infarction without residual deficits; Z73.6 Limitation of activities due to disability | CPT/HCPCS: 97112; 97116; 97530 ==

== ENCOUNTER 2024-03-13 18:13 | Outpatient (RCR) | payer OTHER, SELFPAY | END 2024-03-13 23:59 | disposition home or self-care (01) | LOC: RPT 18:13 | PROVIDERS: ATTENDING PHYSICIAN Internal Medicine Endocrinology, Diabetes & Metabolism; FAMILY PHYSICIAN Family Medicine | DX: E88.41 MELAS syndrome (principal); Z86.73 Personal history of transient ischemic attack (TIA), and cerebral infarction without residual deficits; Z73.6 Limitation of activities due to disability | CPT/HCPCS: 97112; 97116 ==